=== PATIENT | male | born 1975 | race Caucasian/White ===

== ENCOUNTER 2016-08-04 21:44 | Inpatient (IN) | payer OTHER ==
[2016-08-04 22:17] LABS: EOSINOPHIL 3.5 % (0-5); HCT 48.3 % (42.0-52.0); HGB 17.1 g/dl (13.2-18.0); LYMPHOCYTE 20.6 % (15-48); MCHC 35.4 g/dL (32.0-36.0); MCV 93.2 fL (78.0-100.0); MONOCYTE 9.6 % (0-12); MPV 8.9 fL (6.0-9.5); NEUTROPHIL 65.3 % (41-80); PLT 461 K/uL (150-400); RBC 5.18 M/uL (4.70-6.00); RDW 12.1 % (11.5-14.0); WBC 11.5 K/uL (4.0-10.5)
[2016-08-04 22:26] LABS: ALBUMIN 4.5 g/dL (3.5-5.0); BILIRUBIN - TOTAL 0.5 mg/dL (0.1-1.0); GLOBULIN (CALCULATION) 3.5 g/dL (2.2-4.2); POTASSIUM 3.4 mmol/L (3.5-5.1)
[2016-08-05 01:23] LABS: LACTIC ACID 1.8 mmol/L (0.5-2.2)
[2016-08-05 07:18] LABS: BASOPHIL 0.7 % (0-2); EOSINOPHIL 5.3 % (0-5); HCT 37.9 % (42.0-52.0); HGB 13.1 g/dl (13.2-18.0); LYMPHOCYTE 30.7 % (15-48); MCH 32.8 pg (25.0-31.0); MCHC 34.6 g/dL (32.0-36.0); MCV 94.8 fL (78.0-100.0); MONOCYTE 12.4 % (0-12); MPV 8.6 fL (6.0-9.5); NEUTROPHIL 50.9 % (41-80); PLT 364 K/uL (150-400); WBC 10.4 K/uL (4.0-10.5)
[2016-08-05 07:31] LABS: CREATININE 0.8 mg/dL (0.7-1.2); MAGNESIUM 2.01 mg/dL (1.40-2.10); POTASSIUM 3.6 mmol/L (3.5-5.1)
[2016-08-06 05:59] LABS: HCT 40.6 % (42.0-52.0); HGB 13.9 g/dl (13.2-18.0); MCH 32.3 pg (25.0-31.0); MCHC 34.2 g/dL (32.0-36.0); MCV 94.2 fL (78.0-100.0); MPV 8.9 fL (6.0-9.5); RBC 4.31 M/uL (4.70-6.00); RDW 11.9 % (11.5-14.0); WBC 9.8 K/uL (4.0-10.5)
[2016-08-06 06:20] LABS: CREATININE 0.7 mg/dL (0.7-1.2); POTASSIUM 4.3 mmol/L (3.5-5.1)
[2016-08-07 05:48] LABS: HCT 37.7 % (42.0-52.0); MCH 31.6 pg (25.0-31.0); MCHC 34.5 g/dL (32.0-36.0); MCV 91.7 fL (78.0-100.0); MPV 8.8 fL (6.0-9.5); RBC 4.11 M/uL (4.70-6.00); RDW 11.8 % (11.5-14.0); WBC 8.5 K/uL (4.0-10.5)
[2016-08-07 06:09] LABS: CREATININE 0.6 mg/dL (0.7-1.2); POTASSIUM 4.1 mmol/L (3.5-5.1)
[2016-08-07] MEDS ORDERED: THIAMINE HCL100 MG PO (11:31)
[2016-08-07] MEDS ORDERED: CERTAGEN1 EACH PO (11:31)
[2016-08-07] MEDS ORDERED: FOLIC ACID1 MG PO (11:31)
== END 2016-08-07 11:29 | disposition home or self-care (01) | DRG 439 ==
LOC: FER 21:44 → FTCU 08-05 03:15 → FMS 08-05 03:15
PROVIDERS: Emergency Medicine Emergency Medical Services; Internal Medicine Adolescent Medicine; Nurse Practitioner Family; ADMIT Internal Medicine
DX: K85.90 Acute pancreatitis without necrosis or infection, unspecified (principal); K86.3 Pseudocyst of pancreas; J44.9 Chronic obstructive pulmonary disease, unspecified; K86.1 Other chronic pancreatitis; F17.210 Nicotine dependence, cigarettes, uncomplicated; F10.10 Alcohol abuse, uncomplicated; K21.9 Gastro-esophageal reflux disease without esophagitis; Z88.0 Allergy status to penicillin
CPT/HCPCS: 36415; 74000; 76705; 80048; 80053; 80061; 82150; 83605; 83690; 83735; 85025; G0480; J1885; J2270; J2405; Q9967

== ENCOUNTER 2016-08-19 21:49 | Emergency (ER) | payer OTHER ==
[~2016-08-19 21:49] MED LIST: CERTAGEN1 EACH PO; FOLIC ACID1 MG PO; THIAMINE HCL100 MG PO
[2016-08-19 22:06] LABS: BASOPHIL 0.7 % (0-2); EOSINOPHIL 3.8 % (0-5); HCT 47.3 % (42.0-52.0); HGB 16.6 g/dl (13.2-18.0); MCH 31.3 pg (25.0-31.0); MCHC 35.1 g/dL (32.0-36.0); MCV 89.2 fL (78.0-100.0); MONOCYTE 9.8 % (0-12); MPV 8.5 fL (6.0-9.5); NEUTROPHIL 55.7 % (41-80); PLT 426 K/uL (150-400); RDW 12.4 % (11.5-14.0); WBC 12.1 K/uL (4.0-10.5)
[2016-08-19 22:21] LABS: LACTIC ACID 1.5 mmol/L (0.5-2.2)
[2016-08-19 22:23] LABS: ALBUMIN 4.7 g/dL (3.5-5.0); BILIRUBIN - TOTAL 0.4 mg/dL (0.1-1.0); CREATININE 0.9 mg/dL (0.7-1.2); POTASSIUM 4.1 mmol/L (3.5-5.1); TOTAL PROTEIN 7.7 g/dL (6.4-8.3)
[2016-08-19 22:24] LABS: BILIRUBIN 1+ mg/dL (NEGATIVE); BLOOD 3+ Ery/uL (NEGATIVE); CLARITY CLEAR (CLEAR); COLOR AMBER (YELLOW); GLUCOSE (U) NORMAL (NORMAL); KETONE (U) NEGATIVE (NEGATIVE); LEUKOCYTES NEGATIVE Leu/uL (NEGATIVE); NITRITE NEGATIVE (NEGATIVE); PROTEIN TRACE (LOW) mg/dL (NEGATIVE); SPECIFIC GRAVITY >=1.030 (1.001-1.030); UROBILINOGEN 0.2 mg/dL (0.2-1.0)
[2016-08-19 22:31] LABS: AMPHETAMINES NEGATIVE (NEGATIVE); BARBITURATES NEGATIVE (NEGATIVE); BENZODIAZEPINES NEGATIVE (NEGATIVE); COCAINE NEGATIVE (NEGATIVE); MARIJUANA (THC) NEGATIVE (NEGATIVE); METHADONE NEGATIVE (NEGATIVE); TRICYCLIC ANTIDEPRESSANT NEGATIVE (NEGATIVE)
[2016-08-19 22:34] LABS: BACTERIA TRACE
[2016-08-19 22:35] LABS: MUCOUS MODERATE
== END 2016-08-20 00:52 | disposition home or self-care (01) ==
LOC: FER 21:49
PROVIDERS: Emergency Medicine Emergency Medical Services
DX: K85.00 Idiopathic acute pancreatitis without necrosis or infection (principal); K86.1 Other chronic pancreatitis; E86.9 Volume depletion, unspecified; I10 Essential (primary) hypertension; J44.9 Chronic obstructive pulmonary disease, unspecified; F32.9 Major depressive disorder, single episode, unspecified; F17.200 Nicotine dependence, unspecified, uncomplicated; Z88.0 Allergy status to penicillin
CPT/HCPCS: 36415; 74022; 80053; 80305; 81001; 82150; 83605; 83615; 83690; 85025; C9113; G0480; J1170; J1885; J2405

== ENCOUNTER 2016-08-30 22:00 | Emergency (ER) | payer OTHER ==
[2016-08-30 22:41] LABS: BASOPHIL 0.9 % (0-2); EOSINOPHIL 4.6 % (0-5); HCT 44.1 % (42.0-52.0); HGB 15.6 g/dl (13.2-18.0); LYMPHOCYTE 30.5 % (15-48); MCH 31.7 pg (25.0-31.0); MCHC 35.4 g/dL (32.0-36.0); MCV 89.6 fL (78.0-100.0); MONOCYTE 11.3 % (0-12); MPV 8.8 fL (6.0-9.5); NEUTROPHIL 52.7 % (41-80); PLT 384 K/uL (150-400); RBC 4.92 M/uL (4.70-6.00); RDW 12.9 % (11.5-14.0); WBC 10.2 K/uL (4.0-10.5)
[2016-08-30 22:58] LABS: ALBUMIN 4.3 g/dL (3.5-5.0); BILIRUBIN - TOTAL 0.3 mg/dL (0.1-1.0); CREATININE 0.9 mg/dL (0.7-1.2); POTASSIUM 4.1 mmol/L (3.5-5.1); TOTAL PROTEIN 7.3 g/dL (6.4-8.3)
[2016-08-31 00:33] LABS: BILIRUBIN 1+ mg/dL (NEGATIVE); BLOOD NEGATIVE Ery/uL (NEGATIVE); CLARITY CLEAR (CLEAR); COLOR STRAW (YELLOW); GLUCOSE (U) NORMAL (NORMAL); KETONE (U) NEGATIVE (NEGATIVE); LEUKOCYTES NEGATIVE Leu/uL (NEGATIVE); NITRITE NEGATIVE (NEGATIVE); PROTEIN TRACE (LOW) mg/dL (NEGATIVE); SPECIFIC GRAVITY >=1.030 (1.001-1.030); pH 5.5 (5.0-9.0)
[2016-08-31 00:38] LABS: BACTERIA TRACE; CALCIUM OXALATE CRYSTALS MODERATE; MUCOUS LARGE; SQUAMOUS EPITHELIAL CELLS RARE
== END 2016-08-31 01:45 | disposition home or self-care (01) ==
LOC: FER 22:00
PROVIDERS: Emergency Medicine Emergency Medical Services
DX: K85.90 Acute pancreatitis without necrosis or infection, unspecified (principal); K86.1 Other chronic pancreatitis; E86.9 Volume depletion, unspecified; R82.90 Unspecified abnormal findings in urine; K21.9 Gastro-esophageal reflux disease without esophagitis; J44.9 Chronic obstructive pulmonary disease, unspecified; G89.29 Other chronic pain; F10.10 Alcohol abuse, uncomplicated; F17.200 Nicotine dependence, unspecified, uncomplicated; Z88.0 Allergy status to penicillin
CPT/HCPCS: 36415; 74022; 80053; 81001; 82150; 83605; 83615; 83690; 85025; 87076; 87088; 87186; C9113; G0480; J1170; J1885; J2405

== ENCOUNTER 2016-10-12 20:58 | Emergency (ER) | payer OTHER | END 2016-10-12 21:09 | disposition left against medical advice (07) | LOC: FER 20:58 | DX: Z43.4 Encounter for attention to other artificial openings of digestive tract (principal); Z53.8 Procedure and treatment not carried out for other reasons ==

== ENCOUNTER 2016-10-28 23:02 | Emergency (ER) | payer OTHER ==
[2016-10-28 23:54] LABS: BASOPHIL 0.5 % (0-2); EOSINOPHIL 4.3 % (0-5); HCT 39.2 % (42.0-52.0); HGB 14.3 g/dl (13.2-18.0); LYMPHOCYTE 21.8 % (15-48); MCH 30.5 pg (25.0-31.0); MCHC 36.5 g/dL (32.0-36.0); MCV 83.6 fL (78.0-100.0); MONOCYTE 8.1 % (0-12); MPV 8.5 fL (6.0-9.5); NEUTROPHIL 65.3 % (41-80); PLT 405 K/uL (150-400); RBC 4.69 M/uL (4.70-6.00); RDW 13.6 % (11.5-14.0)
[2016-10-29 00:16] LABS: ALKALINE PHOSHATASE 125 U/L (53-128); ALT 21 U/L (2-40); AST 14 U/L (0-37); BILIRUBIN - TOTAL 0.5 mg/dL (0.1-1.0); BUN 7 mg/dL (6-25); CHLORIDE 94 mmol/L (98-107); CREATININE 0.8 mg/dL (0.7-1.2); GLOBULIN (CALCULATION) 2.3 g/dL (2.2-4.2); GLUCOSE 127 mg/dL (70-105); LIPASE >600 U/L (13-60); POTASSIUM 3.4 mmol/L (3.5-5.1); TOTAL PROTEIN 6.3 g/dL (6.4-8.3)
== END 2016-10-29 04:13 | disposition other institution (70) ==
LOC: FER 23:02
PROVIDERS: Emergency Medicine
DX: K86.9 Disease of pancreas, unspecified (principal); F17.210 Nicotine dependence, cigarettes, uncomplicated; Z87.19 Personal history of other diseases of the digestive system; Z85.118 Personal history of other malignant neoplasm of bronchus and lung; Z88.0 Allergy status to penicillin
CPT/HCPCS: 36415; 80053; 83690; 85025; J1170; J2405

== ENCOUNTER 2016-11-05 23:39 | Emergency (ER) | payer OTHER ==
[2016-11-06 00:28] LABS: BASOPHIL 0.7 % (0-2); EOSINOPHIL 1.7 % (0-5); HCT 43.3 % (42.0-52.0); HGB 15.5 g/dl (13.2-18.0); LYMPHOCYTE 25.3 % (15-48); MCH 29.9 pg (25.0-31.0); MCHC 35.8 g/dL (32.0-36.0); MCV 83.4 fL (78.0-100.0); MONOCYTE 8.1 % (0-12); MPV 8.8 fL (6.0-9.5); NEUTROPHIL 64.2 % (41-80); PLT 446 K/uL (150-400); RBC 5.19 M/uL (4.70-6.00); WBC 11.2 K/uL (4.0-10.5)
[2016-11-06 00:43] LABS: ALBUMIN 4.4 g/dL (3.5-5.0); BILIRUBIN - TOTAL 0.3 mg/dL (0.1-1.0); CREATININE 0.8 mg/dL (0.7-1.2); GLOBULIN (CALCULATION) 3.2 g/dL (2.2-4.2); POTASSIUM 4.2 mmol/L (3.5-5.1); TOTAL PROTEIN 7.6 g/dL (6.4-8.3)
== END 2016-11-06 02:43 | disposition home or self-care (01) ==
LOC: FER 23:39
PROVIDERS: Emergency Medicine Emergency Medical Services
DX: R10.13 Epigastric pain (principal); R11.2 Nausea with vomiting, unspecified; R05 Cough; K85.90 Acute pancreatitis without necrosis or infection, unspecified; F32.9 Major depressive disorder, single episode, unspecified; E86.9 Volume depletion, unspecified; Z88.0 Allergy status to penicillin; Z96.49 Presence of other endocrine implants; Z79.899 Other long term (current) drug therapy
CPT/HCPCS: 36415; 71020; 74000; 80053; 82150; 83605; 83690; 85025; J1170; J1885; J2270; J2405

== ENCOUNTER 2016-11-17 23:48 | Emergency (ER) | payer OTHER ==
[2016-11-18 01:47] LABS: BASOPHIL 0.5 % (0-2); EOSINOPHIL 2.7 % (0-5); HCT 44.1 % (42.0-52.0); HGB 15.9 g/dl (13.2-18.0); LYMPHOCYTE 36.3 % (15-48); MCH 29.9 pg (25.0-31.0); MCHC 36.1 g/dL (32.0-36.0); MCV 83.1 fL (78.0-100.0); MONOCYTE 11.5 % (0-12); MPV 8.3 fL (6.0-9.5); PLT 467 K/uL (150-400); RBC 5.31 M/uL (4.70-6.00); RDW 13.8 % (11.5-14.0); WBC 9.5 K/uL (4.0-10.5)
[2016-11-18 02:06] LABS: ALBUMIN 4.7 g/dL (3.5-5.0); BILIRUBIN - TOTAL 0.4 mg/dL (0.1-1.0); CREATININE 0.8 mg/dL (0.7-1.2); GLOBULIN (CALCULATION) 3.2 g/dL (2.2-4.2); POTASSIUM 3.6 mmol/L (3.5-5.1); TOTAL PROTEIN 7.9 g/dL (6.4-8.3)
[2016-11-18 02:07] LABS: ACETAMINOPHEN (TYLENOL) < 5.0 ug/mL (10.0-30.0); ALCOHOL (ETOH) MEDICAL NONE DETECTED; SALICYLATE < 6 ug/mL (0-300)
[2016-11-18 02:39] LABS: AMPHETAMINES NEGATIVE (NEGATIVE); BARBITURATES NEGATIVE (NEGATIVE); BENZODIAZEPINES NEGATIVE (NEGATIVE); COCAINE NEGATIVE (NEGATIVE); MARIJUANA (THC) NEGATIVE (NEGATIVE); METHADONE NEGATIVE (NEGATIVE); TRICYCLIC ANTIDEPRESSANT NEGATIVE (NEGATIVE)
== END 2016-11-18 07:02 | disposition home or self-care (01) ==
LOC: FER 23:48
PROVIDERS: Emergency Medicine Emergency Medical Services
DX: K85.90 Acute pancreatitis without necrosis or infection, unspecified (principal); K86.1 Other chronic pancreatitis; E11.9 Type 2 diabetes mellitus without complications; G89.29 Other chronic pain; M54.9 Dorsalgia, unspecified; F32.9 Major depressive disorder, single episode, unspecified; F41.9 Anxiety disorder, unspecified; F17.210 Nicotine dependence, cigarettes, uncomplicated; Z87.19 Personal history of other diseases of the digestive system; Z88.0 Allergy status to penicillin; Z91.013 Allergy to seafood; Z79.899 Other long term (current) drug therapy; Z97.8 Presence of other specified devices
CPT/HCPCS: 36415; 80053; 80305; 83690; 85025; G0480; J1170; J1885; J2270; J2405

== ENCOUNTER 2016-11-22 17:57 | Emergency (ER) | payer OTHER ==
[2016-11-22 18:43] LABS: BASOPHIL 0.6 % (0-2); EOSINOPHIL 3.4 % (0-5); HCT 47.2 % (42.0-52.0); HGB 17.3 g/dl (13.2-18.0); LYMPHOCYTE 34.6 % (15-48); MCH 29.9 pg (25.0-31.0); MCHC 36.7 g/dL (32.0-36.0); MCV 81.7 fL (78.0-100.0); MPV 8.7 fL (6.0-9.5); NEUTROPHIL 50.4 % (41-80); PLT 470 K/uL (150-400); RBC 5.78 M/uL (4.70-6.00); RDW 13.6 % (11.5-14.0); WBC 9.7 K/uL (4.0-10.5)
[2016-11-22 18:57] LABS: ALBUMIN 4.9 g/dL (3.5-5.0); ALKALINE PHOSHATASE 193 U/L (53-128); ALT 34 U/L (2-40); AMYLASE 1164 U/L (28-100); AST 20 U/L (0-37); BILIRUBIN - TOTAL 0.5 mg/dL (0.1-1.0); BUN 18 mg/dL (6-25); CHLORIDE 87 mmol/L (98-107); CREATININE 1.1 mg/dL (0.7-1.2); GLOBULIN (CALCULATION) 3.5 g/dL (2.2-4.2); GLUCOSE 125 mg/dL (70-105); POTASSIUM 3.3 mmol/L (3.5-5.1); TOTAL PROTEIN 8.4 g/dL (6.4-8.3)
[2016-11-22 19:03] LABS: LIPASE >600 U/L (13-60)
== END 2016-11-22 20:30 | disposition home or self-care (01) ==
LOC: FER 17:57
PROVIDERS: Nurse Practitioner
DX: K85.90 Acute pancreatitis without necrosis or infection, unspecified (principal); K86.1 Other chronic pancreatitis; I10 Essential (primary) hypertension; Z79.899 Other long term (current) drug therapy
CPT/HCPCS: 36415; 80053; 82150; 83690; 85025; J2270; J2765; Q9967

== ENCOUNTER 2020-07-10 13:29 | Emergency (ER) | payer OTHER ==
[~2020-07-10 13:29] MED LIST changes: +BENTYL10 MG PO; +CARAFATE1 GM PO; +CREON DR 36,001 EACH PO; +DEXILANT60 MG PO; +HYDRALAZINE 50M50 MG PO; +HYDROCODON-ACE1 EAC4 PO; +IBUPROFEN800 MG PO; +LISINOPRIL 10MG10 MG PO; +MIRALAX 238GM238 GM PO; +NORCO 5-325 TA1 EACH PO; +OMEPRAZOLE 20MG20 MG PO; +ONDANSETRON ODT4 MG SL; +OXYCODONE HCL E10 MG PO; +OXYCODONE-ACET1 EAC1 PO; +PANCRELIPASE PO; +PERCOCET 10/321 EACH PO; +PERCOCET 5-3251 EACH PO; +PHENERGAN25 M1 PO; +PRINIVIL20 MG PO; +SERTRALINE HCL100 MG PO; +SUCRALFATE1 GM PO; +TRAZODONE 50MG50 MG PO; +VENTOLIN HFA IN18 GM INH; +ZANTAC150 MG PO; +ZOFRAN ODT4 MG SL; +ZOFRAN4 MG PO
[2020-07-10 14:45] LABS: BASOPHIL 0.9 % (0-2); EOSINOPHIL 1.7 % (0-5); HCT 34.9 % (42.0-52.0); HGB 11.8 g/dl (13.2-18.0); LYMPHOCYTE 24.4 % (15-48); MCH 29.9 pg (25.0-31.0); MCHC 33.8 g/dL (32.0-36.0); MCV 88.6 fL (78.0-100.0); MONOCYTE 8.8 % (0-12); MPV 8.4 fL (6.0-9.5); NEUTROPHIL 63.9 % (41-80); NRBC 0; PLT 326 K/uL (150-400); RBC 3.94 M/uL (4.70-6.00); RDW 14.8 % (11.5-14.0); WBC 11.8 K/uL (4.0-10.5)
[2020-07-10 15:27] LABS: ALBUMIN 3.5 g/dL (3.4-5.0); ALKALINE PHOSHATASE 72 U/L (46-116); ALT 21 U/L (16-63); AST 14 U/L (15-37); BILIRUBIN - TOTAL 0.3 mg/dL (0.2-1.0); BUN 10 mg/dL (7-18); BUN/CREAT RATIO (CALC) 13.2 RATIO; CHLORIDE 102 mmol/L (98-107); CO2 (BICARBONATE) 27 mmol/L (21-32); CREATININE 0.76 mg/dL (0.67-1.17); GLOBULIN (CALCULATION) 2.8 g/dL; GLUCOSE 87 mg/dL (74-106); LIPASE 553 U/L (73-393); POTASSIUM 4.1 mmol/L (3.5-5.1); TOTAL PROTEIN 6.3 g/dL (6.4-8.2)
[2020-07-10 16:00] LABS: BILIRUBIN NEGATIVE (NEGATIVE); BLOOD NEGATIVE Ery/uL (NEGATIVE); CLARITY CLEAR (CLEAR); COLOR YELLOW (YELLOW); GLUCOSE (U) NORMAL (NORMAL); LEUKOCYTES NEGATIVE Leu/uL (NEGATIVE); NITRITE NEGATIVE (NEGATIVE); PROTEIN NEGATIVE (NEGATIVE); SPECIFIC GRAVITY >=1.030 (1.001-1.030); UROBILINOGEN 0.2 mg/dL (0.2-1.0)
[2020-07-10] MEDS ORDERED: ZOFRAN4 M1 PO (19:09)
== END 2020-07-10 19:22 | disposition home or self-care (01) ==
LOC: FER 13:29
PROVIDERS: Emergency Medicine
DX: R10.12 Left upper quadrant pain (principal); K86.1 Other chronic pancreatitis; F17.210 Nicotine dependence, cigarettes, uncomplicated; Z88.0 Allergy status to penicillin
CPT/HCPCS: 36415; 80053; 81003; 83690; 84145; 85025; G0480; J1170; J2550; J7030; Q9967

== ENCOUNTER 2020-07-21 18:22 | Emergency (ER) | payer OTHER ==
[~2020-07-21 18:22] MED LIST changes: +ZOFRAN4 M1 PO
[2020-07-21 20:58] LABS: BASOPHIL 0.9 % (0-2); EOSINOPHIL 2.9 % (0-5); HCT 37.9 % (42.0-52.0); HGB 12.6 g/dl (13.2-18.0); LYMPHOCYTE 24.3 % (15-48); MCH 30.1 pg (25.0-31.0); MCHC 33.2 g/dL (32.0-36.0); MCV 90.5 fL (78.0-100.0); MONOCYTE 6.8 % (0-12); MPV 8.3 fL (6.0-9.5); NEUTROPHIL 64.8 % (41-80); NRBC 0; PLT 331 K/uL (150-400); RBC 4.19 M/uL (4.70-6.00); RDW 15.3 % (11.5-14.0); WBC 11.9 K/uL (4.0-10.5)
[2020-07-21 21:14] LABS: ALBUMIN 3.4 g/dL (3.4-5.0); ALKALINE PHOSHATASE 75 U/L (46-116); ALT 16 U/L (16-63); AMYLASE 184 U/L (25-115); AST 31 U/L (15-37); BILIRUBIN - TOTAL 0.3 mg/dL (0.2-1.0); BUN 11 mg/dL (7-18); BUN/CREAT RATIO (CALC) 11.5 RATIO; CHLORIDE 101 mmol/L (98-107); CO2 (BICARBONATE) 29 mmol/L (21-32); CREATININE 0.96 mg/dL (0.67-1.17); GLOBULIN (CALCULATION) 3.4 g/dL; GLUCOSE 98 mg/dL (74-106); LIPASE 595 U/L (73-393); POTASSIUM 4.4 mmol/L (3.5-5.1); TOTAL PROTEIN 6.8 g/dL (6.4-8.2)
[2020-07-21 21:58] LABS: BILIRUBIN NEGATIVE (NEGATIVE); BLOOD NEGATIVE Ery/uL (NEGATIVE); CLARITY CLEAR (CLEAR); COLOR YELLOW (YELLOW); GLUCOSE (U) NORMAL (NORMAL); LEUKOCYTES NEGATIVE Leu/uL (NEGATIVE); NITRITE NEGATIVE (NEGATIVE); PROTEIN TRACE (LOW) mg/dL (NEGATIVE); SPECIFIC GRAVITY >=1.030 (1.001-1.030); UROBILINOGEN 0.2 mg/dL (0.2-1.0)
[2020-07-21 22:00] LABS: SQUAMOUS EPITHELIAL CELLS RARE; URINARY RBC RARE
[2020-07-21 22:00] LABS: ECSTASY (MDMA) NEGATIVE (NEGATIVE); MARIJUANA (THC) POSITIVE (NEGATIVE); METHADONE NEGATIVE (NEGATIVE)
[2020-07-21 22:01] LABS: AMPHETAMINES NEGATIVE (NEGATIVE); BARBITURATES NEGATIVE (NEGATIVE); OPIATES POSITIVE (NEGATIVE); OXYCODONE NEGATIVE (NEGATIVE)
== END 2020-07-21 23:09 | disposition home or self-care (01) ==
LOC: FER 18:22
PROVIDERS: Nurse Practitioner Family
DX: K86.1 Other chronic pancreatitis (principal); I10 Essential (primary) hypertension; F17.210 Nicotine dependence, cigarettes, uncomplicated; Z85.118 Personal history of other malignant neoplasm of bronchus and lung; Z85.07 Personal history of malignant neoplasm of pancreas; Z88.0 Allergy status to penicillin; Z91.013 Allergy to seafood
CPT/HCPCS: 36415; 80053; 80305; 81001; 82150; 83690; 85025; G0480; J2270; J2405; J7030

== ENCOUNTER 2020-07-27 18:31 | Emergency (ER) | payer OTHER ==
[2020-07-27 20:00] LABS: BASOPHIL 1.1 % (0-2); EOSINOPHIL 3.5 % (0-5); HCT 39.4 % (42.0-52.0); HGB 13.3 g/dl (13.2-18.0); LYMPHOCYTE 27.8 % (15-48); MCH 29.9 pg (25.0-31.0); MCHC 33.8 g/dL (32.0-36.0); MCV 88.5 fL (78.0-100.0); MONOCYTE 8.9 % (0-12); MPV 8.2 fL (6.0-9.5); NEUTROPHIL 58.5 % (41-80); NRBC 0; PLT 318 K/uL (150-400); RBC 4.45 M/uL (4.70-6.00); RDW 15.3 % (11.5-14.0); WBC 9.3 K/uL (4.0-10.5)
[2020-07-27 20:02] LABS: BILIRUBIN 1+ mg/dL (NEGATIVE); BLOOD NEGATIVE Ery/uL (NEGATIVE); CLARITY CLEAR (CLEAR); COLOR YELLOW (YELLOW); GLUCOSE (U) NORMAL (NORMAL); LEUKOCYTES NEGATIVE Leu/uL (NEGATIVE); NITRITE NEGATIVE (NEGATIVE); PROTEIN TRACE (LOW) mg/dL (NEGATIVE); SPECIFIC GRAVITY >=1.030 (1.001-1.030); UROBILINOGEN 0.2 mg/dL (0.2-1.0); pH 5.5 (5.0-9.0)
[2020-07-27 20:09] LABS: AMPHETAMINES NEGATIVE (NEGATIVE); BARBITURATES NEGATIVE (NEGATIVE); ECSTASY (MDMA) NEGATIVE (NEGATIVE); MARIJUANA (THC) POSITIVE (NEGATIVE); METHADONE NEGATIVE (NEGATIVE); OPIATES POSITIVE (NEGATIVE); OXYCODONE NEGATIVE (NEGATIVE)
[2020-07-27 20:20] LABS: ALBUMIN 3.6 g/dL (3.4-5.0); BILIRUBIN - TOTAL 0.3 mg/dL (0.2-1.0); BUN/CREAT RATIO (CALC) 14.9 RATIO; CREATININE 0.87 mg/dL (0.67-1.17); GLOBULIN (CALCULATION) 3.4 g/dL; POTASSIUM 4.2 mmol/L (3.5-5.1)
== END 2020-07-27 20:20 | disposition left against medical advice (07) ==
LOC: FER 18:31
PROVIDERS: Nurse Practitioner Family
DX: K86.1 Other chronic pancreatitis (principal); F19.90 Other psychoactive substance use, unspecified, uncomplicated; F17.210 Nicotine dependence, cigarettes, uncomplicated; Z85.118 Personal history of other malignant neoplasm of bronchus and lung; Z90.49 Acquired absence of other specified parts of digestive tract; Z88.0 Allergy status to penicillin; Z91.013 Allergy to seafood
CPT/HCPCS: 36415; 80053; 80305; 81001; 82150; 83690; 85025; 99284

== ENCOUNTER 2020-09-06 14:03 | Emergency (ER) | payer OTHER ==
[2020-09-06 15:38] LABS: BASOPHIL 1.1 % (0-2); EOSINOPHIL 2.9 % (0-5); HCT 35.1 % (42.0-52.0); MCH 29.9 pg (25.0-31.0); MCHC 34.2 g/dL (32.0-36.0); MCV 87.5 fL (78.0-100.0); MONOCYTE 8.1 % (0-12); MPV 8.3 fL (6.0-9.5); NEUTROPHIL 54.7 % (41-80); NRBC 0; PLT 303 K/uL (150-400); RBC 4.01 M/uL (4.70-6.00); RDW 15.4 % (11.5-14.0); WBC 8.8 K/uL (4.0-10.5)
[2020-09-06 16:06] LABS: BUN/CREAT RATIO (CALC) 13.4 RATIO; CREATININE 0.82 mg/dL (0.67-1.17); POTASSIUM 3.8 mmol/L (3.5-5.1)
== END 2020-09-06 17:15 | disposition home or self-care (01) ==
LOC: FER 14:03
PROVIDERS: Nurse Practitioner Family
DX: R10.9 Unspecified abdominal pain (principal); R11.2 Nausea with vomiting, unspecified; Z88.0 Allergy status to penicillin
CPT/HCPCS: 36415; 80048; 85025; J1170; J2405; J7030

== ENCOUNTER 2020-09-10 19:23 | Emergency (ER) | payer OTHER ==
[2020-09-10] MEDS ORDERED: PERCOCET 10-321 EACH PO (20:32)
== END 2020-09-10 20:45 | disposition home or self-care (01) ==
LOC: FER 19:23
DX: R10.13 Epigastric pain (principal); G89.29 Other chronic pain; R11.2 Nausea with vomiting, unspecified; I10 Essential (primary) hypertension; F17.210 Nicotine dependence, cigarettes, uncomplicated; Z87.19 Personal history of other diseases of the digestive system; Z85.07 Personal history of malignant neoplasm of pancreas; Z88.0 Allergy status to penicillin
CPT/HCPCS: 96372; 99283; J1170; J1885

== ENCOUNTER 2020-09-12 05:33 | Emergency (ER) | payer OTHER ==
[~2020-09-12 05:33] MED LIST changes: +PERCOCET 10-321 EACH PO
== END 2020-09-12 06:51 | disposition home or self-care (01) ==
LOC: FER 05:33
DX: K86.1 Other chronic pancreatitis (principal); G89.29 Other chronic pain; I10 Essential (primary) hypertension; F17.210 Nicotine dependence, cigarettes, uncomplicated; Z88.0 Allergy status to penicillin; Z91.013 Allergy to seafood; Z85.07 Personal history of malignant neoplasm of pancreas; Z79.891 Long term (current) use of opiate analgesic
CPT/HCPCS: 96372; 99283; J1170; J1885

== ENCOUNTER 2020-09-20 17:18 | Emergency (ER) | payer OTHER ==
[2020-09-20 20:31] LABS: BASOPHIL 0.7 % (0-2); EOSINOPHIL 2.3 % (0-5); HCT 35.2 % (42.0-52.0); HGB 12.2 g/dl (13.2-18.0); LYMPHOCYTE 20.9 % (15-48); MCH 30.1 pg (25.0-31.0); MCHC 34.7 g/dL (32.0-36.0); MCV 86.9 fL (78.0-100.0); MONOCYTE 7.7 % (0-12); MPV 8.3 fL (6.0-9.5); NRBC 0; PLT 327 K/uL (150-400); RBC 4.05 M/uL (4.70-6.00); RDW 14.9 % (11.5-14.0)
[2020-09-20 20:51] LABS: ALBUMIN 3.3 g/dL (3.4-5.0); BILIRUBIN - TOTAL 0.4 mg/dL (0.2-1.0); BUN/CREAT RATIO (CALC) 12.7 RATIO; CREATININE 0.71 mg/dL (0.67-1.17); GLOBULIN (CALCULATION) 3.3 g/dL; POTASSIUM 3.7 mmol/L (3.5-5.1); TOTAL PROTEIN 6.6 g/dL (6.4-8.2)
[2020-09-20 21:00] LABS: LACTIC ACID 1.2 mmol/L (0.4-1.9)
[2020-09-21] MEDS ORDERED: PERCOCET 7.5/321 TAB PO (22:46)
[2020-09-21] MEDS ORDERED: PHENERGAN25 M1 PO (22:46)
[2020-09-21] MEDS ORDERED: METRONIDAZOLE500 MG PO (23:12)
[2020-09-21] MEDS ORDERED: LEVAQUIN500 MG PO (23:12)
[2020-09-21] MEDS ORDERED: CARAFATE1 GM PO (23:12)
== END 2020-09-20 22:28 | disposition left against medical advice (07) ==
LOC: FER 17:18
PROVIDERS: Emergency Medicine Emergency Medical Services
DX: K86.1 Other chronic pancreatitis (principal); G89.29 Other chronic pain; I10 Essential (primary) hypertension; F17.210 Nicotine dependence, cigarettes, uncomplicated; Z87.19 Personal history of other diseases of the digestive system; Z88.0 Allergy status to penicillin; Z53.8 Procedure and treatment not carried out for other reasons
CPT/HCPCS: 36415; 80053; 82150; 83605; 83690; 85025; 99284; C9113; J2270; J2405

== ENCOUNTER 2020-09-21 13:54 | Emergency (ER) | payer OTHER ==
[2020-09-21 17:47] LABS: BILIRUBIN 1+ mg/dL (NEGATIVE); BLOOD NEGATIVE Ery/uL (NEGATIVE); CLARITY CLEAR (CLEAR); COLOR YELLOW (YELLOW); GLUCOSE (U) NORMAL (NORMAL); LEUKOCYTES NEGATIVE Leu/uL (NEGATIVE); NITRITE NEGATIVE (NEGATIVE); PROTEIN 1+ mg/dL (NEGATIVE); SPECIFIC GRAVITY >=1.030 (1.001-1.030); pH 5.5 (5.0-9.0)
[2020-09-21 17:53] LABS: SQUAMOUS EPITHELIAL CELLS RARE
[2020-09-21 18:03] LABS: BASOPHIL 0.6 % (0-2); EOSINOPHIL 0.6 % (0-5); HCT 43.1 % (42.0-52.0); LYMPHOCYTE 15.3 % (15-48); MCH 29.8 pg (25.0-31.0); MCHC 34.8 g/dL (32.0-36.0); MCV 85.7 fL (78.0-100.0); MONOCYTE 5.7 % (0-12); MPV 8.3 fL (6.0-9.5); NEUTROPHIL 77.4 % (41-80); NRBC 0; PLT 418 K/uL (150-400); RBC 5.03 M/uL (4.70-6.00); RDW 14.9 % (11.5-14.0); WBC 14.1 K/uL (4.0-10.5)
[2020-09-21 18:18] LABS: ALBUMIN 3.9 g/dL (3.4-5.0); BILIRUBIN - TOTAL 0.5 mg/dL (0.2-1.0); BUN/CREAT RATIO (CALC) 15.3 RATIO; CREATININE 0.72 mg/dL (0.67-1.17); GLOBULIN (CALCULATION) 3.8 g/dL; POTASSIUM 4.1 mmol/L (3.5-5.1); TOTAL PROTEIN 7.7 g/dL (6.4-8.2)
[2020-09-21 18:49] LABS: AMPHETAMINES NEGATIVE (NEGATIVE); BARBITURATES NEGATIVE (NEGATIVE); ECSTASY (MDMA) NEGATIVE (NEGATIVE); MARIJUANA (THC) POSITIVE (NEGATIVE); METHADONE NEGATIVE (NEGATIVE); OPIATES POSITIVE (NEGATIVE); OXYCODONE POSITIVE (NEGATIVE)
[2020-09-21] MEDS ORDERED: PERCOCET 7.5/321 TAB PO (22:46)
[2020-09-21] MEDS ORDERED: PHENERGAN25 M1 PO (22:46)
[2020-09-21] MEDS ORDERED: METRONIDAZOLE500 MG PO (23:12)
[2020-09-21] MEDS ORDERED: CARAFATE1 GM PO (23:12)
[2020-09-21] MEDS ORDERED: LEVAQUIN500 MG PO (23:12)
== END 2020-09-21 23:04 | disposition home or self-care (01) ==
LOC: FER 13:54
PROVIDERS: Emergency Medicine
DX: K86.1 Other chronic pancreatitis (principal); G89.29 Other chronic pain; K83.8 Other specified diseases of biliary tract; F17.200 Nicotine dependence, unspecified, uncomplicated; Z88.0 Allergy status to penicillin; K82.8 Other specified diseases of gallbladder
CPT/HCPCS: 36415; 80053; 80305; 81001; 83690; 85025; C9113; J1170; J1885; J2405; J7120; Q9967

== ENCOUNTER 2020-09-30 15:53 | Emergency (ER) | payer OTHER ==
[~2020-09-30 15:53] MED LIST changes: +LEVAQUIN500 MG PO; +METRONIDAZOLE500 MG PO; +PERCOCET 7.5/321 TAB PO
[2020-09-30 18:00] LABS: BASOPHIL 0.9 % (0-2); EOSINOPHIL 3.2 % (0-5); HCT 36.2 % (42.0-52.0); HGB 12.1 g/dl (13.2-18.0); LYMPHOCYTE 21.1 % (15-48); MCH 29.6 pg (25.0-31.0); MCHC 33.4 g/dL (32.0-36.0); MCV 88.5 fL (78.0-100.0); MONOCYTE 7.1 % (0-12); NEUTROPHIL 67.3 % (41-80); NRBC 0; PLT 337 K/uL (150-400); RBC 4.09 M/uL (4.70-6.00); RDW 15.3 % (11.5-14.0); WBC 12.4 K/uL (4.0-10.5)
[2020-09-30 18:08] LABS: BILIRUBIN NEGATIVE (NEGATIVE); BLOOD NEGATIVE Ery/uL (NEGATIVE); CLARITY CLEAR (CLEAR); COLOR YELLOW (YELLOW); GLUCOSE (U) NORMAL (NORMAL); LEUKOCYTES NEGATIVE Leu/uL (NEGATIVE); NITRITE NEGATIVE (NEGATIVE); PROTEIN TRACE (LOW) mg/dL (NEGATIVE); UROBILINOGEN 0.2 mg/dL (0.2-1.0); pH 7.5 (5.0-9.0)
[2020-09-30 18:12] LABS: AMPHETAMINES NEGATIVE (NEGATIVE); BARBITURATES NEGATIVE (NEGATIVE); ECSTASY (MDMA) NEGATIVE (NEGATIVE); MARIJUANA (THC) NEGATIVE (NEGATIVE); METHADONE NEGATIVE (NEGATIVE); OPIATES NEGATIVE (NEGATIVE); OXYCODONE NEGATIVE (NEGATIVE)
[2020-09-30 19:01] LABS: ALBUMIN 3.4 g/dL (3.4-5.0); BILIRUBIN - TOTAL 0.1 mg/dL (0.2-1.0); CHLORIDE 102 mmol/L (98-107); CO2 (BICARBONATE) 28 mmol/L (21-32); GLOBULIN (CALCULATION) 3.3 g/dL; POTASSIUM 3.9 mmol/L (3.5-5.1); TOTAL PROTEIN 6.7 g/dL (6.4-8.2)
[2020-09-30 19:02] LABS: ALKALINE PHOSHATASE 104 U/L (46-116); ALT 26 U/L (16-63); AST 14 U/L (15-37); BUN 12 mg/dL (7-18); C-REACTIVE PROTEIN < 0.20 mg/dL (<=0.90); CREATININE 0.86 mg/dL (0.67-1.17); GLUCOSE 83 mg/dL (74-106); LIPASE 905 U/L (73-393)
== END 2020-09-30 19:00 | disposition home or self-care (01) ==
LOC: FER 15:53
PROVIDERS: Internal Medicine
DX: R10.9 Unspecified abdominal pain (principal); Z98.890 Other specified postprocedural states; Z88.0 Allergy status to penicillin
CPT/HCPCS: 36415; 80053; 80305; 81003; 83605; 83690; 85025; 86140; J1170

== ENCOUNTER 2020-10-07 09:41 | Emergency (ER) | payer OTHER ==
[2020-10-07 11:09] LABS: BASOPHIL 1.4 % (0-2); EOSINOPHIL 2.9 % (0-5); HCT 41.8 % (42.0-52.0); HGB 14.5 g/dl (13.2-18.0); LYMPHOCYTE 29.7 % (15-48); MCH 30.2 pg (25.0-31.0); MCHC 34.7 g/dL (32.0-36.0); MCV 87.1 fL (78.0-100.0); MPV 8.6 fL (6.0-9.5); NEUTROPHIL 57.8 % (41-80); NRBC 0; PLT 407 K/uL (150-400); RDW 15.3 % (11.5-14.0); WBC 8.6 K/uL (4.0-10.5)
[2020-10-07 11:17] LABS: BILIRUBIN - TOTAL 0.4 mg/dL (0.2-1.0); BUN/CREAT RATIO (CALC) 14.6 RATIO; CREATININE 0.82 mg/dL (0.67-1.17); POTASSIUM 4.3 mmol/L (3.5-5.1)
[2020-10-07 11:28] LABS: BILIRUBIN 1+ mg/dL (NEGATIVE); BLOOD NEGATIVE Ery/uL (NEGATIVE); CLARITY CLEAR (CLEAR); COLOR YELLOW (YELLOW); GLUCOSE (U) NORMAL (NORMAL); LEUKOCYTES NEGATIVE Leu/uL (NEGATIVE); NITRITE NEGATIVE (NEGATIVE); PROTEIN TRACE (LOW) mg/dL (NEGATIVE); pH 6.5 (5.0-9.0)
[2020-10-07 11:34] LABS: SQUAMOUS EPITHELIAL CELLS RARE; URINARY RBC RARE
== END 2020-10-07 14:34 | disposition home or self-care (01) ==
LOC: FER 09:41
PROVIDERS: Emergency Medicine
DX: K86.1 Other chronic pancreatitis (principal); I10 Essential (primary) hypertension; J44.9 Chronic obstructive pulmonary disease, unspecified; F17.200 Nicotine dependence, unspecified, uncomplicated; Z87.19 Personal history of other diseases of the digestive system; Z88.0 Allergy status to penicillin; Z91.013 Allergy to seafood
CPT/HCPCS: 36415; 80053; 81001; 83690; 85025; Q9967

== ENCOUNTER 2020-12-26 07:48 | Emergency (ER) | payer OTHER ==
[2020-12-26 13:24] LABS: BASOPHIL 0.7 % (0-2); EOSINOPHIL 1.6 % (0-5); HCT 43.1 % (42.0-52.0); HGB 14.6 g/dl (13.2-18.0); LYMPHOCYTE 24.9 % (15-48); MCH 29.9 pg (25.0-31.0); MCHC 33.9 g/dL (32.0-36.0); MCV 88.3 fL (78.0-100.0); MONOCYTE 6.2 % (0-12); MPV 8.3 fL (6.0-9.5); NEUTROPHIL 66.3 % (41-80); NRBC 0; PLT 314 K/uL (150-400); RBC 4.88 M/uL (4.70-6.00); RDW 14.6 % (11.5-14.0); WBC 9.4 K/uL (4.0-10.5)
[2020-12-26 13:35] LABS: ALBUMIN 3.8 g/dL (3.4-5.0); BILIRUBIN - TOTAL 0.3 mg/dL (0.2-1.0); CREATININE 0.8 mg/dL (0.67-1.17); GLOBULIN (CALCULATION) 3.7 g/dL; POTASSIUM 4.5 mmol/L (3.5-5.1); TOTAL PROTEIN 7.5 g/dL (6.4-8.2)
== END 2020-12-26 14:08 | disposition home or self-care (01) ==
LOC: FER 07:48
PROVIDERS: Nurse Practitioner Family
DX: R10.9 Unspecified abdominal pain (principal); G89.29 Other chronic pain; K86.1 Other chronic pancreatitis; J45.909 Unspecified asthma, uncomplicated; F17.210 Nicotine dependence, cigarettes, uncomplicated; Z88.0 Allergy status to penicillin
CPT/HCPCS: 36415; 80053; 82150; 83690; 85025; 99284

== ENCOUNTER 2021-03-20 22:48 | Emergency (ER) | payer OTHER ==
[2021-03-20 23:26] LABS: EOSINOPHIL 3.5 % (0-5); HCT 44.5 % (42.0-52.0); HGB 15.1 g/dl (13.2-18.0); MCH 30.1 pg (25.0-31.0); MCHC 33.9 g/dL (32.0-36.0); MCV 88.8 fL (78.0-100.0); MONOCYTE 6.8 % (0-12); MPV 8.7 fL (6.0-9.5); NEUTROPHIL 61.5 % (41-80); NRBC 0; PLT 374 K/uL (150-400); RBC 5.01 M/uL (4.70-6.00); RDW 14.9 % (11.5-14.0); WBC 10.3 K/uL (4.0-10.5)
[2021-03-20 23:35] LABS: BILIRUBIN NEGATIVE (NEGATIVE); BLOOD NEGATIVE Ery/uL (NEGATIVE); CLARITY CLEAR (CLEAR); COLOR YELLOW (YELLOW); GLUCOSE (U) NORMAL (NORMAL); LEUKOCYTES NEGATIVE Leu/uL (NEGATIVE); NITRITE NEGATIVE (NEGATIVE); PROTEIN NEGATIVE (NEGATIVE); SPECIFIC GRAVITY 1.015 (1.001-1.030)
[2021-03-21 00:21] LABS: ALBUMIN 3.2 g/dL (3.4-5.0); BILIRUBIN - TOTAL 0.2 mg/dL (0.2-1.0); BUN/CREAT RATIO (CALC) 16.9 RATIO; CREATININE 0.65 mg/dL (0.67-1.17); GLOBULIN (CALCULATION) 3.4 g/dL; POTASSIUM 4.1 mmol/L (3.5-5.1); TOTAL PROTEIN 6.6 g/dL (6.4-8.2)
== END 2021-03-21 06:05 | disposition home or self-care (01) ==
LOC: FER 22:48
PROVIDERS: Emergency Medicine
DX: R10.13 Epigastric pain (principal); Z88.0 Allergy status to penicillin
CPT/HCPCS: 36415; 80053; 81003; 83690; 85025; J1170; J2405; J7030; Q9967

== ENCOUNTER 2021-03-30 15:49 | Emergency (ER) | payer OTHER ==
[2021-03-30 17:06] LABS: BASOPHIL 0.4 % (0-2); EOSINOPHIL 3.4 % (0-5); HCT 37.8 % (42.0-52.0); HGB 12.7 g/dl (13.2-18.0); LYMPHOCYTE 18.5 % (15-48); MCH 29.8 pg (25.0-31.0); MCHC 33.6 g/dL (32.0-36.0); MCV 88.7 fL (78.0-100.0); MONOCYTE 9.3 % (0-12); MPV 8.5 fL (6.0-9.5); NEUTROPHIL 67.8 % (41-80); NRBC 0; PLT 446 K/uL (150-400); RBC 4.26 M/uL (4.70-6.00); RDW 14.8 % (11.5-14.0); WBC 14.2 K/uL (4.0-10.5)
[2021-03-30 17:09] LABS: BILIRUBIN NEGATIVE (NEGATIVE); BLOOD NEGATIVE Ery/uL (NEGATIVE); CLARITY CLEAR (CLEAR); COLOR YELLOW (YELLOW); GLUCOSE (U) NORMAL (NORMAL); LEUKOCYTES NEGATIVE Leu/uL (NEGATIVE); NITRITE NEGATIVE (NEGATIVE); PROTEIN NEGATIVE (NEGATIVE); SPECIFIC GRAVITY 1.015 (1.001-1.030); UROBILINOGEN 0.2 mg/dL (0.2-1.0); pH 6.5 (5.0-9.0)
[2021-03-30 17:32] LABS: ALBUMIN 3.5 g/dL (3.4-5.0); ALKALINE PHOSHATASE 88 U/L (46-116); ALT 30 U/L (16-63); AMYLASE 285 U/L (25-115); AST 12 U/L (15-37); BILIRUBIN - TOTAL 0.2 mg/dL (0.2-1.0); BUN 26 mg/dL (7-18); BUN/CREAT RATIO (CALC) 29.5 RATIO; CHLORIDE 102 mmol/L (98-107); CO2 (BICARBONATE) 29 mmol/L (21-32); CREATININE 0.88 mg/dL (0.67-1.17); GLOBULIN (CALCULATION) 3.6 g/dL; GLUCOSE 109 mg/dL (74-106); LIPASE 935 U/L (73-393); POTASSIUM 4.4 mmol/L (3.5-5.1); TOTAL PROTEIN 7.1 g/dL (6.4-8.2)
[2021-03-30 17:49] LABS: AMPHETAMINES NEGATIVE (NEGATIVE); BARBITURATES NEGATIVE (NEGATIVE); ECSTASY (MDMA) NEGATIVE (NEGATIVE); MARIJUANA (THC) POSITIVE (NEGATIVE); METHADONE NEGATIVE (NEGATIVE); OPIATES NEGATIVE (NEGATIVE)
[2021-03-30 17:50] LABS: OXYCODONE POSITIVE (NEGATIVE)
[2021-03-30 20:18] LABS: LACTIC ACID 0.8 mmol/L (0.4-1.9)
== END 2021-03-31 08:20 | disposition other institution (70) ==
LOC: FER 15:49
PROVIDERS: Nurse Practitioner Family
DX: K85.90 Acute pancreatitis without necrosis or infection, unspecified (principal); K86.1 Other chronic pancreatitis; J44.9 Chronic obstructive pulmonary disease, unspecified; F17.210 Nicotine dependence, cigarettes, uncomplicated; Z88.0 Allergy status to penicillin
CPT/HCPCS: 36415; 80053; 80305; 81003; 82150; 83605; 83690; 85025; G0480; J1170; J2270; J2405; J2550; J7030; Q9967

== ENCOUNTER 2021-04-18 05:58 | Emergency (ER) | payer OTHER ==
[2021-04-18 06:22] LABS: BASOPHIL 0.7 % (0-2); EOSINOPHIL 3.5 % (0-5); HCT 40.5 % (42.0-52.0); HGB 13.6 g/dl (13.2-18.0); LYMPHOCYTE 28.9 % (15-48); MCH 30.6 pg (25.0-31.0); MCHC 33.6 g/dL (32.0-36.0); MONOCYTE 9.2 % (0-12); NEUTROPHIL 57.3 % (41-80); NRBC 0; PLT 296 K/uL (150-400); RBC 4.45 M/uL (4.70-6.00); RDW 14.9 % (11.5-14.0); WBC 11.2 K/uL (4.0-10.5)
[2021-04-18 07:00] LABS: LACTIC ACID 0.7 mmol/L (0.4-1.9)
[2021-04-18 07:02] LABS: ALBUMIN 3.7 g/dL (3.4-5.0); BILIRUBIN - TOTAL 0.3 mg/dL (0.2-1.0); BUN/CREAT RATIO (CALC) 30.4 RATIO; CREATININE 0.56 mg/dL (0.67-1.17); GLOBULIN (CALCULATION) 3.8 g/dL; POTASSIUM 4.4 mmol/L (3.5-5.1); TOTAL PROTEIN 7.5 g/dL (6.4-8.2)
[2021-04-18 08:15] LABS: AMPHETAMINES NEGATIVE (NEGATIVE); BARBITURATES NEGATIVE (NEGATIVE); BILIRUBIN NEGATIVE (NEGATIVE); BLOOD NEGATIVE Ery/uL (NEGATIVE); CLARITY CLEAR (CLEAR); COLOR YELLOW (YELLOW); GLUCOSE (U) NORMAL (NORMAL); LEUKOCYTES NEGATIVE Leu/uL (NEGATIVE); NITRITE NEGATIVE (NEGATIVE); OXYCODONE NEGATIVE (NEGATIVE); PROTEIN NEGATIVE (NEGATIVE); SPECIFIC GRAVITY 1.015 (1.001-1.030); UROBILINOGEN 0.2 mg/dL (0.2-1.0)
[2021-04-18 08:17] LABS: ECSTASY (MDMA) NEGATIVE (NEGATIVE); MARIJUANA (THC) POSITIVE (NEGATIVE); METHADONE NEGATIVE (NEGATIVE); OPIATES POSITIVE (NEGATIVE)
[2021-04-19 07:23] LABS: BASOPHIL 0.5 % (0-2); EOSINOPHIL 2.4 % (0-5); HCT 40.4 % (42.0-52.0); HGB 13.6 g/dl (13.2-18.0); MCH 29.8 pg (25.0-31.0); MCHC 33.7 g/dL (32.0-36.0); MCV 88.6 fL (78.0-100.0); MPV 7.9 fL (6.0-9.5); NEUTROPHIL 68.7 % (41-80); NRBC 0; PLT 284 K/uL (150-400); RBC 4.56 M/uL (4.70-6.00); RDW 14.4 % (11.5-14.0)
[2021-04-19 07:45] LABS: ALBUMIN 3.1 g/dL (3.4-5.0); BILIRUBIN - TOTAL 0.5 mg/dL (0.2-1.0); BUN/CREAT RATIO (CALC) 12.8 RATIO; CREATININE 0.47 mg/dL (0.67-1.17); GLOBULIN (CALCULATION) 3.4 g/dL; POTASSIUM 4.3 mmol/L (3.5-5.1); TOTAL PROTEIN 6.5 g/dL (6.4-8.2)
[2021-04-20 06:40] LABS: BASOPHIL 0.7 % (0-2); EOSINOPHIL 1.6 % (0-5); HCT 37.5 % (42.0-52.0); HGB 12.7 g/dl (13.2-18.0); LYMPHOCYTE 27.9 % (15-48); MCHC 33.9 g/dL (32.0-36.0); MCV 88.7 fL (78.0-100.0); MPV 8.2 fL (6.0-9.5); NEUTROPHIL 60.7 % (41-80); NRBC 0; PLT 269 K/uL (150-400); RBC 4.23 M/uL (4.70-6.00); RDW 14.3 % (11.5-14.0); WBC 6.7 K/uL (4.0-10.5)
[2021-04-20 07:06] LABS: ALBUMIN 2.8 g/dL (3.4-5.0); BILIRUBIN - TOTAL 0.5 mg/dL (0.2-1.0); BUN/CREAT RATIO (CALC) 14.3 RATIO; CREATININE 0.56 mg/dL (0.67-1.17); GLOBULIN (CALCULATION) 2.9 g/dL; POTASSIUM 3.9 mmol/L (3.5-5.1); TOTAL PROTEIN 5.7 g/dL (6.4-8.2)
[2021-04-21] MEDS ORDERED: ONDANSETRON ODT4 MG PO (06:09)
[2021-04-21] MEDS ORDERED: PERCOCET 10-321 EACH PO (06:09)
== END 2021-04-20 13:31 | disposition left against medical advice (07) ==
LOC: FER 05:58
PROVIDERS: Emergency Medicine Emergency Medical Services; Internal Medicine
DX: K85.90 Acute pancreatitis without necrosis or infection, unspecified (principal); J44.9 Chronic obstructive pulmonary disease, unspecified; F17.200 Nicotine dependence, unspecified, uncomplicated; Z53.8 Procedure and treatment not carried out for other reasons; Z88.0 Allergy status to penicillin; Z20.822 Contact with and (suspected) exposure to COVID-19
CPT/HCPCS: 36415; 71045; 74018; 80053; 80305; 81003; 82150; 83605; 83690; 85025; C9113; G0480; J1170; J2270; J2405; J7030; Q9967; U0002

== ENCOUNTER 2021-04-21 01:12 | Emergency (ER) | payer OTHER ==
[2021-04-21 02:24] LABS: BASOPHIL 0.5 % (0-2); EOSINOPHIL 2.3 % (0-5); HGB 12.1 g/dl (13.2-18.0); LYMPHOCYTE 22.1 % (15-48); MCH 30.4 pg (25.0-31.0); MCHC 34.6 g/dL (32.0-36.0); MCV 87.9 fL (78.0-100.0); MONOCYTE 9.6 % (0-12); MPV 8.3 fL (6.0-9.5); NEUTROPHIL 65.4 % (41-80); NRBC 0; PLT 288 K/uL (150-400); RBC 3.98 M/uL (4.70-6.00); RDW 14.2 % (11.5-14.0); WBC 8.1 K/uL (4.0-10.5)
[2021-04-21 02:41] LABS: ALBUMIN 3.1 g/dL (3.4-5.0); BILIRUBIN - TOTAL 0.4 mg/dL (0.2-1.0); BUN/CREAT RATIO (CALC) 16.3 RATIO; CREATININE 0.49 mg/dL (0.67-1.17); GLOBULIN (CALCULATION) 3.3 g/dL; POTASSIUM 3.7 mmol/L (3.5-5.1); TOTAL PROTEIN 6.4 g/dL (6.4-8.2)
[2021-04-21] MEDS ORDERED: PERCOCET 10-321 EACH PO (06:09)
[2021-04-21] MEDS ORDERED: ONDANSETRON ODT4 MG PO (06:09)
== END 2021-04-21 06:30 | disposition home or self-care (01) ==
LOC: FER 01:12
PROVIDERS: Internal Medicine
DX: K85.90 Acute pancreatitis without necrosis or infection, unspecified (principal); K86.2 Cyst of pancreas; I10 Essential (primary) hypertension; F17.210 Nicotine dependence, cigarettes, uncomplicated; Z88.0 Allergy status to penicillin
CPT/HCPCS: 36415; 74150; 80053; 83690; 85025; 96372; J1170; J2405

== ENCOUNTER 2021-04-29 12:14 | Emergency (ER) | payer OTHER ==
[~2021-04-29] VITALS: Ht 165.1 cm; Wt 49.9 kg
[~2021-04-29 12:14] MED LIST changes: +ONDANSETRON ODT4 MG PO
[2021-04-29 13:56] LABS: BASOPHIL 0.8 % (0-2); EOSINOPHIL 1.5 % (0-5); HCT 36.5 % (42.0-52.0); LYMPHOCYTE 26.4 % (15-48); MCH 29.9 pg (25.0-31.0); MCHC 32.9 g/dL (32.0-36.0); MONOCYTE 8.1 % (0-12); MPV 8.5 fL (6.0-9.5); NEUTROPHIL 62.8 % (41-80); NRBC 0; PLT 325 K/uL (150-400); RBC 4.01 M/uL (4.70-6.00); RDW 14.6 % (11.5-14.0); WBC 7.8 K/uL (4.0-10.5)
[2021-04-29 14:10] LABS: BILIRUBIN NEGATIVE (NEGATIVE); BLOOD NEGATIVE Ery/uL (NEGATIVE); CLARITY CLEAR (CLEAR); COLOR YELLOW (YELLOW); GLUCOSE (U) NORMAL (NORMAL); LEUKOCYTES NEGATIVE Leu/uL (NEGATIVE); NITRITE NEGATIVE (NEGATIVE); PROTEIN NEGATIVE (NEGATIVE); SPECIFIC GRAVITY >=1.030 (1.001-1.030); UROBILINOGEN 0.2 mg/dL (0.2-1.0); pH 5.5 (5.0-9.0)
[2021-04-29 14:11] LABS: ALBUMIN 3.4 g/dL (3.4-5.0); BILIRUBIN - TOTAL 0.2 mg/dL (0.2-1.0); BUN/CREAT RATIO (CALC) 23.2 RATIO; CREATININE 0.69 mg/dL (0.67-1.17); GLOBULIN (CALCULATION) 3.2 g/dL; POTASSIUM 4.6 mmol/L (3.5-5.1); TOTAL PROTEIN 6.6 g/dL (6.4-8.2)
[2021-04-29 14:19] LABS: LACTIC ACID 1.3 mmol/L (0.4-1.9)
== END 2021-04-29 18:00 | disposition left against medical advice (07) ==
LOC: FER 12:14
PROVIDERS: Emergency Medicine
DX: K56.7 Ileus, unspecified (principal); K86.1 Other chronic pancreatitis; K86.9 Disease of pancreas, unspecified; F17.200 Nicotine dependence, unspecified, uncomplicated; Z53.8 Procedure and treatment not carried out for other reasons; Z88.0 Allergy status to penicillin
CPT/HCPCS: 36415; 80053; 81003; 82150; 83605; 83690; 85025; J2270; J2405; J7120; Q9967

== ENCOUNTER 2021-05-01 14:34 | Emergency (ER) | payer OTHER ==
[2021-05-01 16:06] LABS: BASOPHIL 0.7 % (0-2); EOSINOPHIL 1.1 % (0-5); HCT 40.6 % (42.0-52.0); HGB 13.8 g/dl (13.2-18.0); LYMPHOCYTE 24.4 % (15-48); MCH 30.8 pg (25.0-31.0); MCV 90.6 fL (78.0-100.0); MPV 8.4 fL (6.0-9.5); NEUTROPHIL 64.6 % (41-80); NRBC 0; PLT 341 K/uL (150-400); RBC 4.48 M/uL (4.70-6.00); RDW 14.9 % (11.5-14.0)
[2021-05-01 16:30] LABS: BUN/CREAT RATIO (CALC) 27.1 RATIO; CREATININE 0.59 mg/dL (0.67-1.17); POTASSIUM 4.7 mmol/L (3.5-5.1)
[2021-05-01 17:48] LABS: BILIRUBIN NEGATIVE (NEGATIVE); BLOOD NEGATIVE Ery/uL (NEGATIVE); CLARITY CLEAR (CLEAR); COLOR YELLOW (YELLOW); GLUCOSE (U) NORMAL (NORMAL); LEUKOCYTES NEGATIVE Leu/uL (NEGATIVE); NITRITE NEGATIVE (NEGATIVE); PROTEIN NEGATIVE (NEGATIVE); SPECIFIC GRAVITY 1.025 (1.001-1.030); UROBILINOGEN 0.2 mg/dL (0.2-1.0)
== END 2021-05-01 19:10 | disposition home or self-care (01) ==
LOC: FER 14:34
PROVIDERS: Nurse Practitioner Family
DX: K86.1 Other chronic pancreatitis (principal); Z88.0 Allergy status to penicillin
CPT/HCPCS: 36415; 80048; 81003; 83690; 85025; J1170; J2405; J7030

== ENCOUNTER 2021-05-20 17:18 | Emergency (ER) | payer OTHER ==
[2021-05-21 03:12] LABS: BASOPHIL 0.6 % (0-2); EOSINOPHIL 1.7 % (0-5); HCT 42.1 % (42.0-52.0); HGB 14.2 g/dl (13.2-18.0); LYMPHOCYTE 24.1 % (15-48); MCH 30.1 pg (25.0-31.0); MCHC 33.7 g/dL (32.0-36.0); MCV 89.2 fL (78.0-100.0); MONOCYTE 7.6 % (0-12); MPV 8.1 fL (6.0-9.5); NEUTROPHIL 65.7 % (41-80); NRBC 0; PLT 318 K/uL (150-400); RBC 4.72 M/uL (4.70-6.00); RDW 14.4 % (11.5-14.0); WBC 10.5 K/uL (4.0-10.5)
[2021-05-21 03:33] LABS: ALBUMIN 3.9 g/dL (3.4-5.0); BILIRUBIN - TOTAL 0.3 mg/dL (0.2-1.0); BUN/CREAT RATIO (CALC) 14.9 RATIO; CREATININE 0.74 mg/dL (0.67-1.17); GLOBULIN (CALCULATION) 3.4 g/dL; TOTAL PROTEIN 7.3 g/dL (6.4-8.2)
[2021-05-21 04:32] LABS: BILIRUBIN 1+ mg/dL (NEGATIVE); BLOOD 2+ Ery/uL (NEGATIVE); CLARITY CLEAR (CLEAR); COLOR YELLOW (YELLOW); GLUCOSE (U) NORMAL (NORMAL); LEUKOCYTES NEGATIVE Leu/uL (NEGATIVE); NITRITE NEGATIVE (NEGATIVE); PROTEIN 1+ mg/dL (NEGATIVE); SPECIFIC GRAVITY 1.025 (1.001-1.030); UROBILINOGEN 0.2 mg/dL (0.2-1.0)
[2021-05-21 04:44] LABS: BACTERIA TRACE; MUCOUS TRACE
[2021-05-21 04:45] LABS: GRANULAR CASTS TRACE
[2021-05-21] MEDS ORDERED: CARAFATE1 GM PO (05:11)
[2021-05-21] MEDS ORDERED: HYDROCODON-ACE1 EAC2 PO (05:11)
[2021-05-21] MEDS ORDERED: ONDANSETRON ODT4 MG SL (05:11)
[2021-05-21] MEDS ORDERED: PERCOCET 5-3251 EACH PO (05:12)
== END 2021-05-21 05:47 | disposition home or self-care (01) ==
LOC: FER 17:18
PROVIDERS: Emergency Medicine
DX: K85.90 Acute pancreatitis without necrosis or infection, unspecified (principal); K86.1 Other chronic pancreatitis; G89.29 Other chronic pain; F17.210 Nicotine dependence, cigarettes, uncomplicated; Z88.0 Allergy status to penicillin
CPT/HCPCS: 36415; 71045; 80053; 81001; 83690; 85025; 86140; 96372; J1170; J1885; J2550

== ENCOUNTER 2021-06-19 20:25 | Emergency (ER) | payer OTHER ==
[~2021-06-19 20:25] MED LIST changes: +HYDROCODON-ACE1 EAC2 PO
[2021-06-19 21:46] LABS: HCT 34.5 % (42.0-52.0); HGB 11.9 g/dl (13.2-18.0); MCH 30.3 pg (25.0-31.0); MCHC 34.5 g/dL (32.0-36.0); MCV 87.8 fL (78.0-100.0); MPV 7.9 fL (6.0-9.5); RBC 3.93 M/uL (4.70-6.00); RDW 14.1 % (11.5-14.0); WBC 9.2 K/uL (4.0-10.5)
[2021-06-19 22:04] LABS: ALBUMIN 3.4 g/dL (3.4-5.0); BILIRUBIN - TOTAL 0.2 mg/dL (0.2-1.0); BUN/CREAT RATIO (CALC) 21.6 RATIO; CREATININE 0.74 mg/dL (0.67-1.17); GLOBULIN (CALCULATION) 2.9 g/dL; POTASSIUM 3.4 mmol/L (3.5-5.1); TOTAL PROTEIN 6.3 g/dL (6.4-8.2)
== END 2021-06-19 23:04 | disposition home or self-care (01) ==
LOC: FER 20:25
PROVIDERS: Emergency Medicine
DX: R10.9 Unspecified abdominal pain (principal); G89.29 Other chronic pain; I10 Essential (primary) hypertension; F17.200 Nicotine dependence, unspecified, uncomplicated; Z79.899 Other long term (current) drug therapy; Z88.0 Allergy status to penicillin
CPT/HCPCS: 36415; 80053; 83690; 84484; 93005; J1885

== ENCOUNTER 2021-06-27 07:56 | Emergency (ER) | payer OTHER ==
[2021-06-27 08:49] LABS: HCT 41.8 % (42.0-52.0); HGB 14.1 g/dl (13.2-18.0); LYMPHOCYTE 22.7 % (15-48); MCH 30.2 pg (25.0-31.0); MCHC 33.7 g/dL (32.0-36.0); MCV 89.5 fL (78.0-100.0); MONOCYTE 8.9 % (0-12); MPV 8.1 fL (6.0-9.5); NEUTROPHIL 64.1 % (41-80); NRBC 0; PLT 321 K/uL (150-400); RBC 4.67 M/uL (4.70-6.00)
[2021-06-27 08:59] LABS: INR 1.02 (0.9-1.2); PROTHROMBIN TIME 12.8 SECONDS (11.8-13.4); PTT 31.4 SECONDS (24.4-34.7)
[2021-06-27 09:51] LABS: ALBUMIN 4.1 g/dL (3.4-5.0); ALKALINE PHOSHATASE 92 U/L (46-116); ALT 21 U/L (16-63); AST 16 U/L (15-37); BILIRUBIN - TOTAL 0.3 mg/dL (0.2-1.0); BUN 11 mg/dL (7-18); BUN/CREAT RATIO (CALC) 14.5 RATIO; CHLORIDE 98 mmol/L (98-107); CO2 (BICARBONATE) 23 mmol/L (21-32); CREATININE 0.76 mg/dL (0.67-1.17); GLOBULIN (CALCULATION) 3.4 g/dL; GLUCOSE 97 mg/dL (74-106); LIPASE 974 U/L (73-393); POTASSIUM 4.4 mmol/L (3.5-5.1); TOTAL PROTEIN 7.5 g/dL (6.4-8.2)
[2021-06-27 10:55] LABS: BILIRUBIN NEGATIVE (NEGATIVE); BLOOD TRACE-INTACT Ery/uL (NEGATIVE); CLARITY CLEAR (CLEAR); COLOR YELLOW (YELLOW); GLUCOSE (U) NORMAL (NORMAL); LEUKOCYTES NEGATIVE Leu/uL (NEGATIVE); NITRITE NEGATIVE (NEGATIVE); PROTEIN TRACE (LOW) mg/dL (NEGATIVE); UROBILINOGEN 0.2 mg/dL (0.2-1.0); pH 6.5 (5.0-9.0)
[2021-06-27 11:05] LABS: AMPHETAMINES NEGATIVE (NEGATIVE); BARBITURATES NEGATIVE (NEGATIVE); ECSTASY (MDMA) NEGATIVE (NEGATIVE); MARIJUANA (THC) POSITIVE (NEGATIVE); METHADONE NEGATIVE (NEGATIVE); OPIATES POSITIVE (NEGATIVE); OXYCODONE NEGATIVE (NEGATIVE)
[2021-06-27 11:40] LABS: URINARY WBC RARE
[2021-06-27 12:56] LABS: BASOPHIL 1.1 % (0-2); EOSINOPHIL 2.4 % (0-5); HCT 36.8 % (42.0-52.0); HGB 12.6 g/dl (13.2-18.0); LYMPHOCYTE 26.7 % (15-48); MCH 30.1 pg (25.0-31.0); MCHC 34.2 g/dL (32.0-36.0); MPV 8.2 fL (6.0-9.5); NEUTROPHIL 61.6 % (41-80); NRBC 0; PLT 282 K/uL (150-400); RBC 4.18 M/uL (4.70-6.00); WBC 8.3 K/uL (4.0-10.5)
[2021-06-27 17:25] LABS: HGB 13.6 g/dL (13.2-18.0)
[2021-06-27] MEDS ORDERED: PERCOCET 5-3251 EACH PO (17:44)
[2021-06-27] MEDS ORDERED: ONDANSETRON ODT4 MG PO (17:44)
== END 2021-06-27 19:15 | disposition home or self-care (01) ==
LOC: FER 07:56
PROVIDERS: Emergency Medicine; Internal Medicine
DX: C25.0 Malignant neoplasm of head of pancreas (principal); E11.9 Type 2 diabetes mellitus without complications; Z20.822 Contact with and (suspected) exposure to COVID-19; Z88.0 Allergy status to penicillin; Z91.013 Allergy to seafood
CPT/HCPCS: 36415; 80053; 80305; 81001; 82140; 82728; 83690; 84145; 85014; 85018; 85025; 85610; 85730; 93005; C9113; G0480; J1170; J2270; J2354; P9047; Q9967; U0002

== ENCOUNTER 2021-07-07 21:26 | Emergency (ER) | payer OTHER ==
[2021-07-07 23:41] LABS: BASOPHIL 0.8 % (0-2); HCT 38.6 % (42.0-52.0); HGB 13.1 g/dl (13.2-18.0); LYMPHOCYTE 23.3 % (15-48); MCH 30.2 pg (25.0-31.0); MCHC 33.9 g/dL (32.0-36.0); MCV 88.9 fL (78.0-100.0); MONOCYTE 7.9 % (0-12); MPV 8.1 fL (6.0-9.5); NEUTROPHIL 64.7 % (41-80); NRBC 0; PLT 371 K/uL (150-400); RBC 4.34 M/uL (4.70-6.00); RDW 13.8 % (11.5-14.0); WBC 12.1 K/uL (4.0-10.5)
[2021-07-07 23:58] LABS: ALBUMIN 3.3 g/dL (3.4-5.0); ALKALINE PHOSHATASE 84 U/L (46-116); ALT 22 U/L (16-63); AMYLASE 328 U/L (25-115); AST 12 U/L (15-37); BILIRUBIN - TOTAL 0.3 mg/dL (0.2-1.0); BUN 18 mg/dL (7-18); BUN/CREAT RATIO (CALC) 14.2 RATIO; CHLORIDE 99 mmol/L (98-107); CO2 (BICARBONATE) 34 mmol/L (21-32); CREATININE 1.27 mg/dL (0.67-1.17); GLOBULIN (CALCULATION) 3.4 g/dL; GLUCOSE 94 mg/dL (74-106); LIPASE 1379 U/L (73-393); POTASSIUM 4.5 mmol/L (3.5-5.1); TOTAL PROTEIN 6.7 g/dL (6.4-8.2)
[2021-07-08 01:41] LABS: BILIRUBIN NEGATIVE (NEGATIVE); BLOOD NEGATIVE Ery/uL (NEGATIVE); CLARITY CLEAR (CLEAR); COLOR YELLOW (YELLOW); GLUCOSE (U) 1+ mg/dL (NORMAL); LEUKOCYTES NEGATIVE Leu/uL (NEGATIVE); NITRITE NEGATIVE (NEGATIVE); PROTEIN NEGATIVE (NEGATIVE); UROBILINOGEN 0.2 mg/dL (0.2-1.0)
[2021-07-08 01:46] LABS: AMPHETAMINES NEGATIVE (NEGATIVE); BARBITURATES NEGATIVE (NEGATIVE); ECSTASY (MDMA) NEGATIVE (NEGATIVE); MARIJUANA (THC) POSITIVE (NEGATIVE); METHADONE NEGATIVE (NEGATIVE); OPIATES POSITIVE (NEGATIVE); OXYCODONE NEGATIVE (NEGATIVE)
== END 2021-07-08 03:10 | disposition home or self-care (01) ==
LOC: FER 21:26
PROVIDERS: Nurse Practitioner Family
DX: K86.1 Other chronic pancreatitis (principal); K86.89 Other specified diseases of pancreas; R74.8 Abnormal levels of other serum enzymes; J44.9 Chronic obstructive pulmonary disease, unspecified; F17.210 Nicotine dependence, cigarettes, uncomplicated; Z88.0 Allergy status to penicillin
CPT/HCPCS: 36415; 80053; 80305; 81003; 82150; 83690; 85025; G0480; J2270

== ENCOUNTER 2021-08-04 23:20 | Emergency (ER) | payer OTHER ==
[2021-08-05 00:28] LABS: BASOPHIL 0.7 % (0-2); EOSINOPHIL 2.9 % (0-5); HCT 38.4 % (42.0-52.0); HGB 13.1 g/dl (13.2-18.0); LYMPHOCYTE 26.9 % (15-48); MCH 30.5 pg (25.0-31.0); MCHC 34.1 g/dL (32.0-36.0); MCV 89.3 fL (78.0-100.0); MONOCYTE 8.6 % (0-12); NEUTROPHIL 60.5 % (41-80); NRBC 0; PLT 345 K/uL (150-400); RDW 14.1 % (11.5-14.0); WBC 11.5 K/uL (4.0-10.5)
[2021-08-05 00:44] LABS: ALBUMIN 3.6 g/dL (3.4-5.0); BILIRUBIN - TOTAL 0.2 mg/dL (0.2-1.0); BUN/CREAT RATIO (CALC) 15.6 RATIO; CREATININE 0.96 mg/dL (0.67-1.17); GLOBULIN (CALCULATION) 3.4 g/dL; POTASSIUM 4.3 mmol/L (3.5-5.1)
[2021-08-05] MEDS ORDERED: PERCOCET 5-3251 EACH PO (02:41)
== END 2021-08-05 03:29 | disposition home or self-care (01) ==
LOC: FER 23:20
PROVIDERS: Internal Medicine
DX: K86.1 Other chronic pancreatitis (principal); F17.210 Nicotine dependence, cigarettes, uncomplicated; Z88.0 Allergy status to penicillin
CPT/HCPCS: 36415; 80053; 83690; 85025; J2270; J2405; J7030

== ENCOUNTER 2021-08-10 16:41 | Emergency (ER) | payer OTHER ==
[2021-08-10] MEDS ORDERED: BACLOFEN 10MG T10 MG PO (19:14)
== END 2021-08-10 19:35 | disposition home or self-care (01) ==
LOC: FER 16:41
DX: S16.1XXA Strain of muscle, fascia and tendon at neck level, initial encounter (principal); S39.012A Strain of muscle, fascia and tendon of lower back, initial encounter; F17.210 Nicotine dependence, cigarettes, uncomplicated; Z88.0 Allergy status to penicillin; V42.5XXA Car driver injured in collision with two- or three-wheeled motor vehicle in traffic accident, initial encounter
CPT/HCPCS: 72125; 72131

== ENCOUNTER 2021-08-17 14:59 | Emergency (ER) | payer OTHER ==
[~2021-08-17 14:59] MED LIST changes: +BACLOFEN 10MG T10 MG PO
[2021-08-17 15:48] LABS: BILIRUBIN 1+ mg/dL (NEGATIVE); BLOOD NEGATIVE Ery/uL (NEGATIVE); CLARITY CLEAR (CLEAR); COLOR YELLOW (YELLOW); GLUCOSE (U) NORMAL (NORMAL); LEUKOCYTES NEGATIVE Leu/uL (NEGATIVE); NITRITE NEGATIVE (NEGATIVE); PROTEIN TRACE (LOW) mg/dL (NEGATIVE); SPECIFIC GRAVITY 1.025 (1.001-1.030); pH 5.5 (5.0-9.0)
[2021-08-17 15:53] LABS: BASOPHIL 0.8 % (0-2); EOSINOPHIL 0.8 % (0-5); HCT 37.1 % (42.0-52.0); HGB 12.7 g/dl (13.2-18.0); LYMPHOCYTE 24.6 % (15-48); MCH 30.2 pg (25.0-31.0); MCHC 34.2 g/dL (32.0-36.0); MCV 88.3 fL (78.0-100.0); MONOCYTE 8.9 % (0-12); MPV 7.9 fL (6.0-9.5); NEUTROPHIL 64.5 % (41-80); NRBC 0; PLT 323 K/uL (150-400); RDW 14.5 % (11.5-14.0)
[2021-08-17 16:02] LABS: BACTERIA 2+; SQUAMOUS EPITHELIAL CELLS RARE; URINARY RBC RARE
[2021-08-17 16:13] LABS: ALBUMIN 3.8 g/dL (3.4-5.0); BILIRUBIN - TOTAL 0.2 mg/dL (0.2-1.0); BUN/CREAT RATIO (CALC) 11.3 RATIO; CREATININE 0.97 mg/dL (0.67-1.17); POTASSIUM 4.8 mmol/L (3.5-5.1); TOTAL PROTEIN 6.8 g/dL (6.4-8.2)
[2021-08-17] MEDS ORDERED: VIBRAMYCIN100 MG PO (17:10)
[2021-08-17] MEDS ORDERED: ZOVIRAX800 MG PO (17:10)
== END 2021-08-17 17:22 | disposition home or self-care (01) ==
LOC: FER 14:59
PROVIDERS: Nurse Practitioner Family
DX: B02.9 Zoster without complications (principal); N39.0 Urinary tract infection, site not specified; R10.9 Unspecified abdominal pain; I10 Essential (primary) hypertension; F17.210 Nicotine dependence, cigarettes, uncomplicated; Z88.0 Allergy status to penicillin
CPT/HCPCS: 36415; 80053; 81001; 82150; 83690; 85025; 87088; 99284

== ENCOUNTER 2021-08-26 09:37 | Emergency (ER) | payer OTHER ==
[~2021-08-26] VITALS: Ht 165.1 cm; Wt 47.6 kg
[~2021-08-26 09:37] MED LIST changes: +VIBRAMYCIN100 MG PO; +ZOVIRAX800 MG PO
[2021-08-26 10:21] LABS: BASOPHIL 0.5 % (0-2); EOSINOPHIL 0.5 % (0-5); HCT 43.2 % (42.0-52.0); HGB 14.8 g/dl (13.2-18.0); LYMPHOCYTE 16.4 % (15-48); MCH 30.3 pg (25.0-31.0); MCHC 34.3 g/dL (32.0-36.0); MCV 88.5 fL (78.0-100.0); MPV 8.5 fL (6.0-9.5); NEUTROPHIL 74.9 % (41-80); NRBC 0; RBC 4.88 M/uL (4.70-6.00); RDW 14.4 % (11.5-14.0); WBC 14.7 K/uL (4.0-10.5)
[2021-08-26 10:22] LABS: BILIRUBIN NEGATIVE (NEGATIVE); BLOOD NEGATIVE Ery/uL (NEGATIVE); CLARITY CLEAR (CLEAR); COLOR YELLOW (YELLOW); GLUCOSE (U) NORMAL (NORMAL); LEUKOCYTES NEGATIVE Leu/uL (NEGATIVE); NITRITE NEGATIVE (NEGATIVE); PROTEIN TRACE (LOW) mg/dL (NEGATIVE); SPECIFIC GRAVITY >=1.030 (1.001-1.030); UROBILINOGEN 0.2 mg/dL (0.2-1.0)
[2021-08-26 10:24] LABS: ECSTASY (MDMA) NEGATIVE (NEGATIVE); MARIJUANA (THC) POSITIVE (NEGATIVE); METHADONE NEGATIVE (NEGATIVE); OPIATES POSITIVE (NEGATIVE)
[2021-08-26 10:25] LABS: AMPHETAMINES NEGATIVE (NEGATIVE); BARBITURATES NEGATIVE (NEGATIVE); OXYCODONE POSITIVE (NEGATIVE)
[2021-08-26 10:38] LABS: PLT 450 K/uL (150-400)
[2021-08-26 10:42] LABS: ALBUMIN 4.1 g/dL (3.4-5.0); ALKALINE PHOSHATASE 88 U/L (46-116); ALT 21 U/L (16-63); AMYLASE 248 U/L (25-115); AST 10 U/L (15-37); BILIRUBIN - TOTAL 0.3 mg/dL (0.2-1.0); BUN 11 mg/dL (7-18); BUN/CREAT RATIO (CALC) 10.5 RATIO; CHLORIDE 100 mmol/L (98-107); CO2 (BICARBONATE) 27 mmol/L (21-32); CREATININE 1.05 mg/dL (0.67-1.17); GLOBULIN (CALCULATION) 3.6 g/dL; GLUCOSE 155 mg/dL (74-106); LIPASE 785 U/L (73-393); POTASSIUM 4.3 mmol/L (3.5-5.1); TOTAL PROTEIN 7.7 g/dL (6.4-8.2)
[2021-08-26] MEDS ORDERED: PHENERGAN25 M1 PO (11:17)
[2021-08-26] MEDS ORDERED: ONDANSETRON ODT4 MG PO (11:17)
== END 2021-08-26 11:53 | disposition home or self-care (01) ==
LOC: FER 09:37
PROVIDERS: Emergency Medicine
DX: K86.1 Other chronic pancreatitis (principal); F17.200 Nicotine dependence, unspecified, uncomplicated; Z88.0 Allergy status to penicillin
CPT/HCPCS: 36415; 80053; 80305; 81003; 82150; 83690; 84145; 85025; G0480; J1885

== ENCOUNTER 2021-09-03 18:05 | Emergency (ER) | payer OTHER ==
[~2021-09-03] VITALS: Ht 165.1 cm; Wt 49.9 kg
== END 2021-09-03 18:55 | disposition home or self-care (01) ==
LOC: FER 18:05
DX: R10.9 Unspecified abdominal pain (principal); G89.29 Other chronic pain; Z88.0 Allergy status to penicillin; Z91.013 Allergy to seafood
CPT/HCPCS: 99284

== ENCOUNTER 2021-10-25 19:30 | Emergency (ER) | payer OTHER ==
[2021-10-25 19:55] LABS: BASOPHIL 0.1 % (0-2); EOSINOPHIL 0.6 % (0-5); HCT 40.6 % (42.0-52.0); HGB 13.8 g/dl (13.2-18.0); LYMPHOCYTE 16.8 % (15-48); MCH 30.3 pg (25.0-31.0); MCV 89.2 fL (78.0-100.0); MONOCYTE 8.7 % (0-12); MPV 8.2 fL (6.0-9.5); NEUTROPHIL 73.2 % (41-80); NRBC 0; PLT 436 K/uL (150-400); RBC 4.55 M/uL (4.70-6.00); RDW 14.3 % (11.5-14.0); WBC 15.1 K/uL (4.0-10.5)
[2021-10-25 20:09] LABS: ALBUMIN 3.6 g/dL (3.4-5.0); BILIRUBIN - TOTAL 0.3 mg/dL (0.2-1.0); BUN/CREAT RATIO (CALC) 24.5 RATIO; CREATININE 0.98 mg/dL (0.67-1.17); GLOBULIN (CALCULATION) 3.8 g/dL; POTASSIUM 3.7 mmol/L (3.5-5.1); TOTAL PROTEIN 7.4 g/dL (6.4-8.2)
[2021-10-25 20:47] LABS: BILIRUBIN NEGATIVE (NEGATIVE); BLOOD NEGATIVE Ery/uL (NEGATIVE); CLARITY CLEAR (CLEAR); COLOR YELLOW (YELLOW); GLUCOSE (U) NORMAL (NORMAL); LEUKOCYTES NEGATIVE Leu/uL (NEGATIVE); NITRITE NEGATIVE (NEGATIVE); PROTEIN 1+ mg/dL (NEGATIVE); SPECIFIC GRAVITY >=1.030 (1.001-1.030); UROBILINOGEN 0.2 mg/dL (0.2-1.0); pH 5.5 (5.0-9.0)
[2021-10-25 21:03] LABS: LACTIC ACID 2.6 mmol/L (0.4-1.9)
== END 2021-10-26 00:02 | disposition home or self-care (01) ==
LOC: FER 19:30
PROVIDERS: Emergency Medicine; Nurse Practitioner Family
DX: K86.1 Other chronic pancreatitis (principal); R10.84 Generalized abdominal pain; I10 Essential (primary) hypertension; F17.210 Nicotine dependence, cigarettes, uncomplicated; Z88.0 Allergy status to penicillin; Z91.013 Allergy to seafood
CPT/HCPCS: 36415; 80053; 81003; 83605; 83690; 85025; 93005; 96372; G0480; J1885; J7030; Q9967

== ENCOUNTER 2021-10-26 22:19 | Emergency (ER) | payer OTHER | END 2021-10-26 23:24 | disposition home or self-care (01) | LOC: FER 22:19 | DX: K86.1 Other chronic pancreatitis (principal); R10.84 Generalized abdominal pain; F17.210 Nicotine dependence, cigarettes, uncomplicated; Z88.0 Allergy status to penicillin; Z91.013 Allergy to seafood | CPT/HCPCS: 99283; J1885 ==

== ENCOUNTER 2022-02-21 12:32 | Emergency (ER) | payer OTHER ==
[2022-02-21 15:44] LABS: BASOPHIL 1.3 % (0-2); EOSINOPHIL 3.7 % (0-5); HCT 34.2 % (42.0-52.0); HGB 11.3 g/dl (13.2-18.0); LYMPHOCYTE 35.4 % (15-48); MCH 29.3 pg (25.0-31.0); MCV 88.6 fL (78.0-100.0); MONOCYTE 8.8 % (0-12); MPV 8.4 fL (6.0-9.5); NEUTROPHIL 49.8 % (41-80); NRBC 0; PLT 400 K/uL (150-400); RBC 3.86 M/uL (4.70-6.00); RDW 16.1 % (11.5-14.0); WBC 10.8 K/uL (4.0-10.5)
[2022-02-21 15:50] LABS: CLARITY CLEAR (CLEAR); COLOR YELLOW (YELLOW); SPECIFIC GRAVITY 1.025 (1.001-1.030)
[2022-02-21 15:51] LABS: BILIRUBIN NEGATIVE (NEGATIVE); BLOOD NEGATIVE Ery/uL (NEGATIVE); GLUCOSE (U) NORMAL (NORMAL); LEUKOCYTES NEGATIVE Leu/uL (NEGATIVE); NITRITE NEGATIVE (NEGATIVE); PROTEIN NEGATIVE (NEGATIVE); UROBILINOGEN 0.2 mg/dL (0.2-1.0)
[2022-02-21 16:01] LABS: ALBUMIN 3.1 g/dL (3.4-5.0); BILIRUBIN - TOTAL 0.1 mg/dL (0.2-1.0); BUN/CREAT RATIO (CALC) 14.9 RATIO; CREATININE 0.74 mg/dL (0.67-1.17); GLOBULIN (CALCULATION) 3.6 g/dL; POTASSIUM 4.7 mmol/L (3.5-5.1); TOTAL PROTEIN 6.7 g/dL (6.4-8.2)
== END 2022-02-21 17:03 | disposition left against medical advice (07) ==
LOC: FER 12:32
PROVIDERS: Emergency Medicine
DX: R10.13 Epigastric pain (principal); I10 Essential (primary) hypertension; F17.200 Nicotine dependence, unspecified, uncomplicated; Z53.29 Procedure and treatment not carried out because of patient's decision for other reasons; Z28.310 Unvaccinated for COVID-19
CPT/HCPCS: 36415; 80053; 81003; 83690; 85025; 99283